=== PATIENT | male | born 1950 | race Caucasian/White ===

== ENCOUNTER → 2016-04-30 | Outpatient (CLI) | payer OTHER ==
[~2016-04-30] VITALS: Ht 175.3 cm; Wt 81.7 kg
[~2016-04-30] MED LIST: ALPHA LIPOIC A100 MG PO; CYMBALTA30 MG PO; NEURONTIN 300300 M1 PO; TERAZOSIN HCL10 MG PO; VITAMIN D1000 UNI1 PO
--- NOTE | ~2016-04-30 | P ---
[facility] [place] [address] PROCEDURE REPORT Name: DANIEL LUGO Room #: REG MITCH Salgado#: [id number] Admission: 04/30/16 Attend Phys: Topher Liz Discharge: Date of : 48 Report #: [id number] THIS REPORT FOR: //name// CC: Cruz Nieves DATE OF SERVICE: 04/30/2016 PROCEDURE PERFORMED: Colonoscopy with biopsies. HISTORY OF PRESENT ILLNESS: The patient is a 65-year-old male who presents today for a screening colonoscopy. He has a family history of colon cancer in his sister. He does report loose stools at times, otherwise denies any symptoms. DESCRIPTION OF PROCEDURE: The risks and benefits of the procedure were explained to the patient, those risks including but not limited to bleeding, perforation, the risk of sedation. He understood these risks and gave informed consent. Sedation was given using propofol per anesthesia. Next, a digital rectal exam was initially performed, which was normal. Next, using a standard Fujinon colonoscope, the scope was placed in the patient's anus and advanced under direct vision to the cecum. The overall prep was excellent. The cecum and ileocecal valve were normal in appearance. Terminal ileum was intubated and normal in appearance. Ascending, transverse, descending and sigmoid colon were all normal. Because of his history of loose stools, stool samples was obtained and sent to the lab. Random biopsies were also obtained to rule out the possibility of microscopic colitis. The rectal mucosa was normal. On retroflexion, no abnormalities were noted. The scope was then withdrawn and the procedure terminated. The patient tolerated the procedure well. IMPRESSION: 1. Colonoscopy. RECOMMENDATIONS: 1. Await stool studies and biopsy results. 2. Repeat colonoscopy in 5 years due to family history. Thank you for allowing me to participate in his care. <ELECTRONICALLY SIGNED> By: Topher Nieves MD 05/03/16 1055 [id number] Topher Nieves MD /nt
--- NOTE | ~2016-04-30 | S ---
[facility] [place] [address] SURGICAL PATH RPT PROCEDURE Name: DANIEL LUGO Room #: REG [facility] M.R.#: [id number] Admission: 04/30/16 Date of : 48 Discharge: Report #: [id number] Path Case #: [id number] PATHOLOGY REPORT COLLECTION DATE: 04/30/2016 RECEIVED DATE: 04/30/2016 SUBMITTING PHYS: Dr. Topher Nieves OTHER PHYS: Dr. Cruz Jacobs SPECIMEN(S) RECEIVED: A.Random colon bx * * * * * * * * * * * * FINAL DIAGNOSIS: "Random colon bx," biopsy: - Colonic mucosa with mild reactive changes; no evidence of active, lymphocytic, or collagenous colitis. (CLW:; d/t: 05/03/16) PATHOLOGIST: Salome Hickman M.D. REPORT ELECTRONICALLY SIGNED BY: Salome Hickman M.D. DATE/TIME: 05/03/2016 14:51 * * * * * * * * * * * * GROSS PATHOLOGY: Received in formalin labeled "BabatundeDaniel and random colon," are 6 segments of merino soft tissue measuring 2.2 x 0.3 x 0.2 cm in aggregate dimensions and ranging from 0.2 to 0.5 cm in maximum dimension. The specimen is submitted entirely in cassette A1. (TTL; 04/30/2016) CLINICAL HISTORY: Pre-op diagnosis: Diarrhea, weight screening, CC INITIAL CPT CODE(S): A; 75949 Professional services performed by [facility] at [facility] [address] [place] [address] Technical services performed by [facility] at [address] [place] [id number]. [facility] [address] [place] [address] SURGICAL PATH RPT PROCEDURE Name: DANIEL LUGO Room #: REG MITCH Salgado#: [id number] Admission: 04/30/16 Date of : 48 Discharge: Report #: [id number] Path Case #: [id number] [address] PHONE: [phone] DIRECTOR: Odell Muhammad M.D. * * * END OF REPORT * * *
== END ==
LOC: GI 07:31
DX: Z12.11 Encounter for screening for malignant neoplasm of colon (principal); Z80.0 Family history of malignant neoplasm of digestive organs; F32.9 Major depressive disorder, single episode, unspecified; F41.9 Anxiety disorder, unspecified; I10 Essential (primary) hypertension
CPT/HCPCS: 62110; 62900